=== PATIENT | female | born 1990 | race African-American/Black ===

== ENCOUNTER 2023-07-31 17:52 | Emergency (ER) | payer MEDICAID, OTHER ==
[~2023-07-31] VITALS: Ht 165.1 cm; Wt 91.0 kg
[~2023-07-31 17:52] MED LIST: PRENATAL TAB; TYLENOL
[2023-07-31 18:18] VITALS: BP 123/70; PULSE 99; RESP 18; TEMP 98.2; O2SAT 99
[2023-07-31] MEDS ORDERED: GLYC30DR4 EACHEYE (18:28)
[2023-07-31] MEDS ORDERED: CETI10CA11 MT (18:28)
[2023-07-31] MEDS ORDERED: DIPH25CA83 MT (18:28)
== END 2023-07-31 18:45 | disposition home or self-care (01) ==
LOC: ER 17:52
DX: T78.40XA Allergy, unspecified, initial encounter (principal); J45.909 Unspecified asthma, uncomplicated; Z98.890 Other specified postprocedural states; X58.XXXA Exposure to other specified factors, initial encounter
CPT/HCPCS: 99281; 99282

== ENCOUNTER 2023-08-03 19:11 | Emergency (ER) | payer MEDICAID ==
[~2023-08-03] VITALS: Ht 160 cm; Wt 88.3 kg
[~2023-08-03 19:11] MED LIST changes: +CETI10CA11 MT; +DIPH25CA83 MT; +GLYC30DR4 EACHEYE
[2023-08-03 19:23] VITALS: BP 111/75; PULSE 63; RESP 14; TEMP 98.4; O2SAT 100
[2023-08-03] MEDS ORDERED: IBUP-2029 MT (22:40)
== END 2023-08-03 22:44 | disposition home or self-care (01) ==
LOC: ER 19:13
DX: S20.211A Contusion of right front wall of thorax, initial encounter (principal); J45.909 Unspecified asthma, uncomplicated; Z88.1 Allergy status to other antibiotic agents; X58.XXXA Exposure to other specified factors, initial encounter; Y93.89 Activity, other specified; Y92.89 Other specified places as the place of occurrence of the external cause; Y99.8 Other external cause status
CPT/HCPCS: 71101; 99283

== ENCOUNTER 2024-02-28 15:37 | Emergency (ER) | payer MEDICAID ==
[~2024-02-28] VITALS: Ht 162.6 cm; Wt 84.0 kg
[~2024-02-28 15:37] MED LIST changes: +IBUP-2029 MT
[2024-02-28 15:45] VITALS: O2SAT 99
[2024-02-28 16:23] LABS: BASOPHILS % 0.5 % (0.0-2.0); EOSINOPHILS % 1.7 % (0.0-5.0); HEMOGLOBIN. 12.2 g/dL (12.0-16.0); LYMPHOCYTES % 17.9 % (20.0-50.0); MEAN CORPUSCULAR HEMOGLOBIN 29.1 pg (28.0-32.0); MEAN CORPUSCULAR HGB CONC 32.9 g/dL (31.0-37.0); MEAN CORPUSCULAR VOLUME 88.6 fL (81.0-99.0); MONOCYTES % 6.2 % (2.0-8.0); NEUTROPHILS % 73.7 % (40.0-76.0); PLATELET 326 x1000/uL (130-400); RED BLOOD CELL COUNT 4.18 mill/uL (4.2-5.4); RED CELL DISTRIBUTION WIDTH 12.6 % (11.6-14.6); WHITE BLOOD COUNT 13.2 x1000/uL (4.5-11.0)
[2024-02-28 16:28] LABS: HCG SCREEN NEGATIVE
[2024-02-28 16:35] LABS: CHLORIDE 106 mEq/L (98-107); POTASSIUM 3.5 mEq/L (3.5-5.1); SODIUM 140 mEq/L (136-145)
[2024-02-28 16:36] LABS: CARBON DIOXIDE 30 mEq/L (21-32)
[2024-02-28 16:37] LABS: CALCIUM 9.3 mg/dL (8.7-10.4)
[2024-02-28 16:41] LABS: CREATININE 0.9 mg/dL (0.6-1.0)
[2024-02-28 16:42] LABS: GLUCOSE 80 mg/dL (70-105); UREA NITROGEN BLOOD 7 mg/dL (9-23)
[2024-02-28 16:43] LABS: ALANINE AMINOTRANSFERASE 12 IU/L (10-49); ALBUMIN 4.2 g/dL (3.2-4.8); ASPARTATE AMINOTRANSFERASE 17 IU/L (<34)
[2024-02-28 16:44] LABS: BILIRUBIN DIRECT 0.2 mg/dL (<=3.0); BILIRUBIN TOTAL 0.4 mg/dL (0.1-1.0); PROTEIN TOTAL 6.8 g/dL (6.0-8.3)
[2024-02-28] MEDS ORDERED: MUPI1OIN4 TP (18:05)
[2024-02-28] MEDS ORDERED: CEPH500C2 MT (18:05)
[2024-02-28] MEDS: HYDROCODONE/ACETAMINOPHEN 5/325MG TABLET PO ONE (18:43)
[2024-02-28 18:47] VITALS: BP 118/63; PULSE 70; RESP 19; TEMP 98
== END 2024-02-28 18:47 | disposition home or self-care (01) ==
LOC: ER 15:52
DX: L01.00 Impetigo, unspecified (principal); J45.909 Unspecified asthma, uncomplicated; Z98.890 Other specified postprocedural states; Z79.899 Other long term (current) drug therapy
CPT/HCPCS: 36415; 80048; 80076; 84703; 85025; 99283

== ENCOUNTER 2024-03-08 13:30 | Emergency (ER) | payer MEDICAID ==
[~2024-03-08] VITALS: Ht 160 cm; Wt 81.6 kg
[~2024-03-08 13:30] MED LIST changes: +CEPH500C2 MT; +MUPI1OIN4 TP
[2024-03-08 13:36] VITALS: TEMP 98.6; O2SAT 100
[2024-03-08] MEDS ORDERED: BO1 TP (15:25)
[2024-03-08] MEDS ORDERED: HYDR28CR97 TP (15:25)
[2024-03-08] MEDS ORDERED: EPIN0.3P3 IM (15:27)
[2024-03-08] MEDS ORDERED: DIPH25CA83 MT (15:27)
[2024-03-08] MEDS: DEXAMETHASONE 10 MG/ML VIAL IM ONE (15:37)
[2024-03-08] MEDS: KETOROLAC 30MG/ML VIAL IM ONE (15:37)
[2024-03-08] MEDS: FAMOTIDINE 20MG TABLET PO ONE (15:38)
[2024-03-08] MEDS: DIPHENHYDRAMINE 25MG CAPSULE PO ONE (15:38)
[2024-03-08 15:43] VITALS: BP 113/65; PULSE 89; RESP 16
== END 2024-03-08 15:49 | disposition home or self-care (01) ==
LOC: ER 14:33
DX: L23.9 Allergic contact dermatitis, unspecified cause (principal); J45.909 Unspecified asthma, uncomplicated; Z91.040 Latex allergy status; Z88.2 Allergy status to sulfonamides; Z88.8 Allergy status to other drugs, medicaments and biological substances
CPT/HCPCS: 96372; 99284; Q0163; J1100; J1885; Z7610

== ENCOUNTER 2024-06-30 21:24 | Emergency (ER) | payer MEDICAID ==
[~2024-06-30] VITALS: Ht 167.6 cm; Wt 74.0 kg
[~2024-06-30 21:24] MED LIST changes: +BO1 TP; +EPIN0.3P3 IM; +HYDR28CR97 TP
[2024-06-30 21:33] VITALS: O2SAT 99
[2024-06-30] MEDS: SODIUM CHLORIDE 0.9% 1,000 ML IV ONE (22:28)
[2024-06-30 22:47] LABS: BASOPHILS % 0.4 % (0.0-2.0); HEMATOCRIT. 30.3 % (36.0-48.0); HEMOGLOBIN. 9.8 g/dL (12.0-16.0); LYMPHOCYTES % 16.3 % (20.0-50.0); MEAN CORPUSCULAR HEMOGLOBIN 29.4 pg (28.0-32.0); MEAN CORPUSCULAR HGB CONC 32.2 g/dL (31.0-37.0); MEAN CORPUSCULAR VOLUME 91.3 fL (81.0-99.0); MEAN PLATELET VOLUME 7.8 fl (7.4-10.4); MONOCYTES % 6.2 % (2.0-8.0); NEUTROPHILS % 76.1 % (40.0-76.0); PLATELET 218 x1000/uL (130-400); RED BLOOD CELL COUNT 3.32 mill/uL (4.2-5.4); RED CELL DISTRIBUTION WIDTH 13.7 % (11.6-14.6); WHITE BLOOD COUNT 7.9 x1000/uL (4.5-11.0)
[2024-06-30 22:50] LABS: CHLORIDE 118 mEq/L (98-107); POTASSIUM 2.9 mEq/L (3.5-5.1); SODIUM 145 mEq/L (136-145)
[2024-06-30 22:51] LABS: CALCIUM 6.8 mg/dL (8.7-10.4); CARBON DIOXIDE 20 mEq/L (21-32)
[2024-06-30 22:55] LABS: HCG SCREEN NEGATIVE
[2024-06-30 22:56] LABS: CREATININE 0.6 mg/dL (0.6-1.0); GLUCOSE 79 mg/dL (70-105)
[2024-06-30 22:57] LABS: ETHANOL BLOOD 199 mg/dL (<10); UREA NITROGEN BLOOD 6 mg/dL (9-23)
[2024-06-30 22:58] LABS: ALANINE AMINOTRANSFERASE < 7 IU/L (10-49); ALBUMIN 3.1 g/dL (3.2-4.8); ASPARTATE AMINOTRANSFERASE 12 IU/L (<34)
[2024-06-30 22:59] LABS: BILIRUBIN TOTAL 0.2 mg/dL (0.1-1.0); PROTEIN TOTAL 5.4 g/dL (6.0-8.3)
[2024-06-30 23:03] LABS: BILIRUBIN DIRECT < 0.1 mg/dL (<=3.0)
[2024-07-01] MEDS: KCL 20MEQ/100ML PREMIX 100 ML IV SCH (00:09)
[2024-07-01] MEDS: ONDANSETRON HCL 4MG/2ML INJ IV STA (00:09)
[2024-07-01 00:51] VITALS: BP 14/62; PULSE 89; RESP 15; TEMP 36.61404; O2SAT 99
[2024-07-01] MEDS ORDERED: POTASSIUM CHLORIDE 20MEQ/PACKET PO NR (03:15)
[2024-07-01] MEDS ORDERED: ONDANSETRON HCL 4MG/2ML INJ IV NR (03:15)
== END 2024-07-01 03:47 | disposition home or self-care (01) ==
LOC: ER 21:24
DX: T51.0X1A Toxic effect of ethanol, accidental (unintentional), initial encounter (principal); G92.9 Unspecified toxic encephalopathy; Z88.1 Allergy status to other antibiotic agents; Z88.2 Allergy status to sulfonamides; Z79.899 Other long term (current) drug therapy; X58.XXXA Exposure to other specified factors, initial encounter; Y90.6 Blood alcohol level of 120-199 mg/100 ml
CPT/HCPCS: 80076; 80048; 80320; 84703; 83690; 85025; 36415; 96361; 99291; 96365; J7030; Z7610; J3480; G0480

== ENCOUNTER 2024-12-26 07:56 | Emergency (ER) | payer MEDICAID ==
[~2024-12-26] VITALS: Ht 160 cm; Wt 81.6 kg
[2024-12-26 08:13] VITALS: BP 119/69; TEMP 36.7; O2SAT 100
[2024-12-26 08:17] VITALS: PULSE 107; RESP 18; O2SAT 100
[2024-12-26] MEDS ORDERED: LORA10CA MT (08:38)
== END 2024-12-26 08:53 | disposition home or self-care (01) ==
LOC: ER 07:56
DX: L29.9 Pruritus, unspecified (principal); F32.A Depression, unspecified; Z88.1 Allergy status to other antibiotic agents; Z88.2 Allergy status to sulfonamides
CPT/HCPCS: 99282